=== PATIENT | male | born 1935 | race Caucasian/White ===

== ENCOUNTER 2019-02-20 11:11 | Emergency (ER) | payer MEDICARE, OTHER ==
[~2019-02-20] VITALS: Ht 175.3 cm; Wt 85.3 kg
[~2019-02-20 11:11] MED LIST: AMLODIPINE; ASPI-1155 PO; BENAZEPRIL; LIPITOR; METROPOLOL
[2019-02-20 11:15] VITALS: BP_SYST 160
[2019-02-20] MEDS ORDERED: LIDOCAINE 1% 10 MG/ML, 20 ML MDV IJ ONE (11:15)
[2019-02-20] MEDS ORDERED: BACITRACIN 1 GM OINT TP ONE (11:15)
[2019-02-20] MEDS ORDERED: DIPH-TET-PERTUS Vaccine 0.5 ML VIAL (ADACEL) IM ONE (11:15)
[2019-02-20 12:48] VITALS: BP_SYST 152
== END 2019-02-20 12:48 | disposition home or self-care (01) ==
LOC: SED 11:11
DX: S01.81XA Laceration without foreign body of other part of head, initial encounter (principal); I25.2 Old myocardial infarction; I10 Essential (primary) hypertension; Z79.899 Other long term (current) drug therapy; W01.0XXA Fall on same level from slipping, tripping and stumbling without subsequent striking against object, initial encounter; Y93.89 Activity, other specified; Y92.89 Other specified places as the place of occurrence of the external cause; Y99.8 Other external cause status
CPT/HCPCS: 70450-TC; 90715; 99284

== ENCOUNTER 2019-05-26 10:42 | Emergency (ER) | payer MEDICARE ==
[~2019-05-26] VITALS: Ht 180.3 cm; Wt 83.9 kg
[2019-05-26 10:42] VITALS: BP_SYST 123
[2019-05-26] MEDS ORDERED: ALBUTEROL SULFATE 0.083% 2.5 MG/3 ML VIAL.NEB IH ONE (11:15)
[2019-05-26] MEDS ORDERED: IPRATROPIUM BROM 0.5 MG/2.5 ML VIAL.NEB (ATROVENT) IH ONE (11:15)
[2019-05-26 11:18] LABS: BASOPHILS # (AUTO) 0.1 K/uL (0.0-0.2); BASOPHILS % (AUTO) 0.8 % (0.0-2.0); EOSINOPHILS # (AUTO) 0.1 K/uL (0.0-0.4); EOSINOPHILS % (AUTO) 1.7 % (0.0-4.0); HEMATOCRIT 31.5 % (36-54); HEMOGLOBIN 10.6 g/dL (14.0-18.0); LYMPHOCYTES # (AUTO) 1.2 K/uL (1.0-5.5); LYMPHOCYTES % (AUTO) 16.1 % (20.5-51.5); MEAN CORPUSCULAR HEMOGLOBIN 30 pg (27-31); MEAN CORPUSCULAR HGB CONC 34 % (32-36); MEAN CORPUSCULAR VOLUME 89 fL (79.0-98.0); MONOCYTES # (AUTO) 0.7 K/uL (0.0-1.0); MONOCYTES % (AUTO) 8.8 % (1.7-9.3); NEUTROPHILS # (AUTO) 5.6 K/uL (1.8-7.7); NEUTROPHILS % (AUTO) 72.6 % (40.0-70.0); PLATELET COUNT (AUTO) 188 K/uL (130-430); RED BLOOD CELL COUNT(AUTO) 3.54 MIL/uL (4.2-6.2); RED CELL DISTRIBUTION WIDTH 14.9 % (9.0-15.0); WHITE BLOOD COUNT (AUTO) 7.7 K/uL (4.8-10.8)
[2019-05-26 11:45] LABS: ANION GAP 8 (5-15); CALCIUM 9.3 mg/dL (8.4-11.0); CHLORIDE 107 mmol/L (98-107); CREATININE 1.98 mg/dL (0.55-1.30); GLUCOSE 103 mg/dL (70-99); POTASSIUM 4.4 mmol/L (3.5-5.1); SODIUM SERUM 135 mmol/L (136-145); UREA NITROGEN, BLOOD 47 mg/dL (8-21)
[2019-05-26 11:50] LABS: ALANINE AMINOTRANSFERASE 100 U/L (12-78); ALBUMIN 3.4 g/dL (3.4-4.8); ASPARTATE AMINOTRANSFERASE 36 U/L (10-37); LIPASE 128 U/L (73-393); TOTAL BILIRUBIN 0.8 mg/dL (0.0-1.0)
[2019-05-26] MEDS ORDERED: ASPIRIN 325 MG TABLET PO ONE (12:00)
[2019-05-26] MEDS ORDERED: ENOXAPARIN SODIUM 80 MG/0.8 ML SYRINGE SUBCUT ONE (12:15)
[2019-05-26 12:59] LABS: BILIRUBIN,URINE NEGATIVE (NEGATIVE); BLOOD, URINE NEGATIVE (NEGATIVE); CLARITY/URINE CLEAR (CLEAR); COLOR,URINE YELLOW (YELLOW); GLUCOSE,URINE NEGATIVE (NEGATIVE); KETONES,URINE NEGATIVE (NEGATIVE); LEUKOCYTE ESTERASE ,URINE NEGATIVE (NEGATIVE); NITRITE, URINE NEGATIVE (NEGATIVE); PROTEIN URINE TRACE (NEGATIVE); UROBILINOGEN,URINE 0.2 (0.2-1.0)
[2019-05-26 14:40] VITALS: BP_SYST 126
== END 2019-05-26 14:42 | disposition short-term general hospital (02) ==
LOC: SED 10:42
DX: I24.9 Acute ischemic heart disease, unspecified (principal); J90 Pleural effusion, not elsewhere classified; I25.2 Old myocardial infarction; I10 Essential (primary) hypertension; Z79.82 Long term (current) use of aspirin; Z79.899 Other long term (current) drug therapy
CPT/HCPCS: 36415; 36600; 71045; 71250; 74176; 80053; 81003; 82803; 83605; 83690; 83880; 84484; 85025; 85379; 85730; 87040; 87086; 93005; 94640; 96372; 99285; J1650

== ENCOUNTER 2021-02-03 12:18 | Emergency (ER) | payer MEDICARE, SELFPAY ==
[~2021-02-03] VITALS: Ht 177.8 cm; Wt 72.6 kg
[2021-02-03 12:19] VITALS: BP_SYST 154
[2021-02-03 12:54] LABS: BASOPHILS % (AUTO) 0.6 % (0.0-2.0); EOSINOPHILS % (AUTO) 0.4 % (0.0-4.0); HEMATOCRIT 34.4 % (36-54); HEMOGLOBIN 10.7 g/dL (14.0-18.0); LYMPHOCYTES # (AUTO) 0.8 K/uL (1.0-5.5); MEAN CORPUSCULAR HEMOGLOBIN 24 pg (27-31); MEAN CORPUSCULAR HGB CONC 31 % (32-36); MEAN CORPUSCULAR VOLUME 78 fL (79.0-98.0); MONOCYTES # (AUTO) 0.6 K/uL (0.0-1.0); MONOCYTES % (AUTO) 9.4 % (1.7-9.3); NEUTROPHILS # (AUTO) 4.7 K/uL (1.8-7.7); NEUTROPHILS % (AUTO) 76.6 % (40.0-70.0); PLATELET COUNT (AUTO) 206 K/uL (130-430); RED CELL DISTRIBUTION WIDTH 18.5 % (9.0-15.0); WHITE BLOOD COUNT (AUTO) 6.1 K/uL (4.8-10.8)
[2021-02-03 13:16] LABS: ANION GAP 14 (5-15); CHLORIDE 102 mmol/L (98-107); CREATININE 2.86 mg/dL (0.55-1.30); GLUCOSE 111 mg/dL (70-99); POTASSIUM 4.6 mmol/L (3.5-5.1); SODIUM SERUM 136 mmol/L (136-145); UREA NITROGEN, BLOOD 62 mg/dL (8-21)
[2021-02-03 13:20] LABS: INR 1.3 (0.80-1.20); PROTHROMBIN TIME 13.4 SECS (9.5-12.5)
[2021-02-03 13:21] LABS: ALANINE AMINOTRANSFERASE 27 U/L (12-78); ALBUMIN 3.1 g/dL (3.4-4.8); ASPARTATE AMINOTRANSFERASE 25 U/L (10-37); TOTAL BILIRUBIN 1.2 mg/dL (0.0-1.0)
[2021-02-03] MEDS ORDERED: ALEN70TA3 PO (14:17)
[2021-02-03] MEDS ORDERED: CETI1TAB2 PO (14:17)
[2021-02-03] MEDS ORDERED: NITSL SL (14:17)
[2021-02-03] MEDS ORDERED: FURO-150 PO ×2 (14:17)
[2021-02-03] MEDS ORDERED: LOSA100T3 PO (14:17)
[2021-02-03] MEDS ORDERED: NOR10 PO (14:17)
[2021-02-03] MEDS ORDERED: AMLO2.5T2 PO (14:17)
[2021-02-03] MEDS ORDERED: SERT50TA PO (14:17)
[2021-02-03] MEDS ORDERED: ASPI-1457 PO (14:17)
[2021-02-03] MEDS ORDERED: NITROGLYCERIN 1 INCH (GM) OINT. ONE (14:43)
[2021-02-03] MEDS ORDERED: ASPIRIN 325 MG TABLET PO ONE (14:45)
[2021-02-03] MEDS ORDERED: NITROGLYCERIN 1 INCH (GM) OINT. TP ONE (14:45)
[2021-02-03] MEDS ORDERED: NITROGLYCERIN 0.4 MG/HR PATCH.TD24 TD SCH (14:45)
[2021-02-03 17:30] VITALS: BP_SYST 130
== END 2021-02-03 17:30 | disposition short-term general hospital (02) ==
LOC: SED 12:18
DX: I11.0 Hypertensive heart disease with heart failure (principal); I50.9 Heart failure, unspecified; R77.8 Other specified abnormalities of plasma proteins; I25.2 Old myocardial infarction; Z20.822 Contact with and (suspected) exposure to COVID-19; Z79.899 Other long term (current) drug therapy; Z79.82 Long term (current) use of aspirin
CPT/HCPCS: 36415; 71045; 80053; 83880; 84484; 85025; 85610-TC; 85730-TC; 86140; 93005; 99285